=== PATIENT | male | born 1950 | race Caucasian/White ===

== ENCOUNTER → 2019-03-18 | Outpatient (CLI) | payer BC, OTHER ==
--- NOTE | 2019-03-18 11:18 | PCVCIMAG ---
APPROVED REPORT Study performed: 03/18/2019 09:22:26 EXAM: Comprehensive 2D, Doppler, and color-flow Echocardiogram Patient Location: Echo lab Status: routine BSA: 1.98 HR: 60 bpmBP: 138/72 mmHg Rhythm: NSR Other Information Study Quality: Adequate Risk Factors: Cardiac Risk Factors: HTN, Hyperlipidemia, DM Indications CAD Cardiomyopathy S/P CABGx4 (2009) ICD 2D Dimensions IVSd: 10.55 (7-11mm)LVOT Diam: 20.00 (18-24mm) LVDd: 47.75 mm PWd: 10.91 (7-11mm)Ascending Ao: 31.20 (22-36mm) LVDs: 39.07 (25-40mm) Left Atrium: 41.13 (27-40mm) Aortic Root: 27.23 mm LV Single Plane 4CH: 45.63 % LV Single Plane 2CH: 36.39 % Biplane EF: 43.3 % Volumes Left Atrial Volume (Systole) Single Plane 4CH: 68.88 mLSingle Plane 2CH: 75.52 mL LA ESV Index: 37.00 mL/m2 Aortic Valve AoV Peak Ang.: 1.39 m/s AO Peak Gr.: 7.78 mmHgLVOT Max P.03 mmHg LVOT Max V: 1.00 m/s DELMI Vmax: 2.21 cm2 Mitral Valve E/A Ratio: 1.3 MV Decel. Time: 283.18 ms MV E Max Ang.: 1.18 m/s MV A Ang.: 0.94 m/s IVRT: 78.43 ms TDI E/Lateral E': 19.67E/Medial E': 39.33 Medial E' Ang.: 0.03 m/s Lateral E' Ang.: 0.06 m/s Pulmonary Valve PV Peak Ang.: 1.09 m/sPV Peak Gr.: 4.71 mmHg FL End Vmax: 1.44 m/s Pulmonary Vein P Vein S: 0.39 m/sP Vein A: 0.22 m/s P Vein D: 0.49 m/sP Vein A Dur.: 101.5 msec P Vein S/D Ratio: 0.80 Tricuspid Valve RAP Estimate: 7.00 mmHg Left Ventricle The left ventricle is normal size. Inferior and inferolateral hypokinesis. Borderline concentric left ventricular hypertrophy. Left ventricular systolic function is moderately decreased. LVEF is 35-40%. Moderate diastolic dysfunction is present (pseudonormal filling). Right Ventricle Right ventricle is borderline dilated. The right ventricular systolic function is normal. Device lead is present in the right ventricle. Atria Left atrium is mildly dilated. Right atrium is mildly dilated. Aortic Valve Aortic valve is calcified. No aortic regurgitation is present. There is no aortic valvular stenosis. Mitral Valve There is mitral annular calcification. Trace mitral regurgitation. No evidence of mitral valve stenosis. Tricuspid Valve The tricuspid valve is normal in structure. There is no tricuspid valve regurgitation noted. Pulmonic Valve The pulmonary valve is normal in structure. There is no pulmonic valvular regurgitation. Great Vessels The aortic root is normal in size. IVC is normal in size and collapses >50% with inspiration. Pulmonary artery is dilated and measures 3.0 cm. Pericardium There is no pericardial effusion. <Conclusion> Left ventricular systolic function is moderately decreased. Inferior and inferolateral hypokinesis. LVEF is 35-40%. Moderate diastolic dysfunction Both atria are mildly dilated. Aortic valve is calcified. No aortic regurgitation or stenosis. There is mitral annular calcification. Trace mitral regurgitation. Pulmonary artery pressure could not be reliably ascertained There is no pericardial effusion.
== END | disposition home or self-care (01) ==
LOC: PCVCIMAG 08:58
PROVIDERS: ATTEND Internal Medicine
DX: I05.8 Other rheumatic mitral valve diseases (principal); I25.10 Atherosclerotic heart disease of native coronary artery without angina pectoris; I42.9 Cardiomyopathy, unspecified; E78.00 Pure hypercholesterolemia, unspecified; I25.5 Ischemic cardiomyopathy; E78.5 Hyperlipidemia, unspecified; I10 Essential (primary) hypertension; Z95.0 Presence of cardiac pacemaker; Z95.1 Presence of aortocoronary bypass graft
CPT/HCPCS: 93306